=== PATIENT | female | born 1955 | race Caucasian/White ===

== ENCOUNTER → 2017-10-24 12:19 | Outpatient (CLI) | payer OTHER, SELFPAY ==
--- NOTE | 2017-10-24 12:22 | HPBD_ITS ---
STUDY: DUAL ENERGY X-RAY ABSORPTIOMETRY / DXA REASON FOR EXAM: Female, 62 years old. The patient is postmenopausal. No loss of height. TECHNIQUE: Bone Mineral Density (BMD) measurements of lumbar spine and bilateral hips were obtained. COMPARISON: Comparison is made with prior study dated February 12, 2012. FINDINGS: Lumbar Spine (L1-L4): g/cm2 (1.307) / T-score (1.2) / Z-score (2.7) Findings are suggestive of normal bone density with a low fracture risk. Left Femur Total: g/cm2 (1.027) / T-score (0.2) / Z-score (1.3) Left Femoral Neck: g/cm2 (0.930) / T-score (-0.8) / Z-score (0.7) Right Femur Total: g/cm2 (0.968) / T-score (-0.3) / Z-score (0.8) Right Femoral Neck: g/cm2 (0.919) / T-score (-0.9) / Z-score (0.6) The T-Scores on the most recent prior examination were: Lumbar Spine (L1-L4): There has been worsening of bone density since the previous examination. Left Femur Total: which represents a worsening of 4.7%. Right Femur Total: which represents a worsening of 6.5%. HPBD/Dexa Bone Density Study (HP) IMPRESSION: The patient is considered normal as outlined below according to World [place] Organization (WHO) criteria with a low fracture risk. There has been worsening of bone density since the previous examination. Reference Information: The T-score is the number of standard deviations above or below the standard which is normal for young adults at their peak bone mineral density. The World Health Organization (WHO) interprets the T-scores as follows: Above -1 Normal bone density Between -1 and -2.5 Osteopenia Equal to / or below -2.5 Osteoporosis As a practical clinical guideline, osteopenia may be graded as follows: Mild -1 through -1.5 Moderate -1.6 through -2.0 Severe -2.1 through -2.4 The Z-score is the number of standard deviations above or below age-matched controls. A Z-score of less than -1.5 would be considered abnormal. References: 1. NIH Osteoporosis and Related Bone Diseases http://www.osteo.org 2. International Society for Clinical Densitometry http://www.iscd.org 3. National Osteoporosis Foundation http://www.nof.org Electronically Signed: Brain Ricketts MD at 14:37 EST Tel [phone], Service support ,
--- NOTE | 2017-10-24 12:22 | US_ITS ---
STUDY: ULTRASOUND BREAST - LEFT REASON FOR EXAM: Female, 62 years old. Palpable lump left breast. TECHNIQUE: Axial and longitudinal images of the LEFT breast were performed with a high resolution ultrasound transducer. COMPARISON: Comparison is made with prior mammogram done earlier in the day. FINDINGS: LEFT Breast: The palpable abnormality corresponds to a 4 mm x 6 mm x 3 mm lymph node in the axillary region of the breast. US/Breast Limited Unilateral IMPRESSION: The abnormality in the axillary region of the breast corresponds to a 6 mm x 4 mm x 3 mm lymph node. ASSESSMENT CATEGORY: BIRADS Category 2: Benign. A letter regarding these results will be sent to the patient by the facility within 30 days. Electronically Signed: Brain Ricketts MD at 15:02 EST Tel [phone], Service support ,
--- NOTE | 2017-10-24 12:22 | HPBI_ITS ---
MAMMOGRAPHY - BILATERAL DIAGNOSTIC REASON FOR EXAM: Female, 62 years old. One-year history of the left breast lump. PERTINENT HISTORY: Mother with breast cancer. Grandmother with breast cancer. TECHNIQUE: Digital bilateral breast aram (3D mammographic acquisition) in the CC and MLO projections. 2-D mediolateral oblique (MLO) and craniocaudad (CC) views of both breasts were obtained. CAD: Full Field Digital Mammography with Computer Added Detection was performed. COMPARISON: Comparison is made with prior outside examination dated October 11, 2016. FINDINGS: Breast Composition: The breasts are extremely dense, which lowers the sensitivity of mammography. There are no dominant masses or suspicious calcifications. No other significant abnormalities are identified. There has been no significant change since the prior study. HPBI/DIAG MAMM W/CAD, BILAT IMPRESSION: Stable bilateral diagnostic mammogram. With the patient's history of a palpable abnormality in the upper outer aspect of the left breast, correlation with ultrasound is recommended. ASSESSMENT CATEGORY: BIRADS Category 0: Incomplete. Need additional imaging evaluation. A letter regarding these results will be sent to the patient by the facility within 30 days. Approximately 10% of breast cancers are not detected by mammography. A normal mammogram should not delay biopsy of a clinically suspicious abnormality. Electronically Signed: Brain Ricketts MD at 14:30 EST Tel [phone], Service support ,
== END ==
PROVIDERS: Family Provider Internal Medicine; PCP Internal Medicine; Visit Provider Internal Medicine
DX: N63.0 Unspecified lump in unspecified breast (principal); Z12.31 Encounter for screening mammogram for malignant neoplasm of breast; Z78.0 Asymptomatic menopausal state
CPT/HCPCS: 76642; 77062; 77066; 77080; G0279

== ENCOUNTER 2017-11-20 06:33 | Day surgery (SDC) | payer OTHER, SELFPAY ==
[2017-11-20 07:01] VITALS: BP 105/65; PULSE 61; RESP 16; TEMP 36.6; O2SAT 97; BMI 20.6
--- NOTE | 2017-11-20 08:07 | PCM.HP.STD ---
Problem List (1) Encounter for screening for malignant neoplasm of colon Status: Acute History of Present Illness Date of Admission: 11/20/17 The patient is a 62 year old F who presents for screening colonoscopy. Past Medical History Allergies No Known Allergies Allergy (Verified 11/18/17 09:58) Home Medications: Ambulatory Orders Medication Instructions Recorded Budesonide/Formoterol 80-4.5 2 puff INHALATION DAILY 11/18/17 [Symbicort 80-4.5 Mcg Inhaler] Levothyroxine Sodium [Levoxyl] 75 mcg PO DAILY 11/18/17 Montelukast [Singulair] 10 mg PO QHS 11/18/17 Smoking Status: Former smoker Review of Systems Cardiovascular: Denies: Chest Pain, Chest Pressure, Chest Tightness, Palpitations Gastrointestinal: Denies: Abdominal Pain, Constipation, Diarrhea, Hematemesis, Nausea, Melena, Vomiting VTE Information - Inpt Only VTE Present on Admission: No VTE Mechan Device Prophylaxis: None VTE Pharm Prophylaxis ordered?: No Reason prophylaxis not ordered:: Treatment Not Indicated Patient Problems: Active and Suspected Problems Encounter for screening for malignant neoplasm of colon (Acute) - Physical Exam Neck: Supple, No JVD Lungs: Clear to auscultation Cardiovascular: Regular rate, Regular Rhythm, No murmurs Abdomen: Bowel Sounds Present, Soft, Non Tender, Non-Distended Vital Signs Temp Pulse Resp BP Pulse Ox 97.8 F 61 16 105/65 97 11/20/17 07:01 11/20/17 07:01 11/20/17 07:01 11/20/17 07:01 11/20/17 07:01 Oxygen Delivery Method Room Air Weight: 116 lb 6.465 oz Body Mass Index (BMI) 20.6 Assessment/Plan Active and Suspected Problems Encounter for screening for malignant neoplasm of colon (Acute) My plan is to perform a colonoscopy on the patient.
--- NOTE | 2017-11-20 08:09 | PCM.OPRPT ---
Problem List (1) Encounter for screening for malignant neoplasm of colon Status: Acute Report of Operation Date of Procedure: 11/20/17 Pre-Operative Diagnosis: Z12.11 screening colonoscopy Post-Operative Diagnosis: Same Surgery/Procedure Performed:: [id number] colonoscopy Type of Anesthesia:: MAC Anesthesiologist: Flakito Wright Description of Procedure: Patient was brought into the endoscopy suite placed in the left lateral decubitus position. She was given graded anesthesia. Scope was inserted into the rectum and directed through the sigmoid colon, descending colon, transverse colon, ascending colon, to the cecum. Operative findings: 1. Cecum: Normal appearance no mass lesions normal ileocecal valve. 2. Ascending colon: Normal appearance no mass lesions. 3. Transverse colon: Normal appearance no mass lesions. 4. Descending colon: Normal appearance no mass lesions. 5. Sigmoid colon: Normal appearance no mass lesions. 6. Rectum: Normal appearance no mass lesions retroflexion did reveal a few internal hemorrhoids which were not actively bleeding. The scope was withdrawn digital rectal exam was performed showing no masses within her anus. The mucosa of the colon was entirely normal there was no abnormalities identified there was no diverticular disease identified. Patient will need another colonoscopy in 10 years - Admit VTE Documentation VTE Present on Admission: No VTE Mechan Device Prophylaxis: None VTE Pharm Prophylaxis ordered?: No Reason prophylaxis not ordered:: Treatment Not Indicated
[2017-11-20 08:12] VITALS: BP 105/65; BP 94/64; PULSE 67; RESP 18; TEMP 36.2; O2SAT 100
[2017-11-20 08:15] VITALS: BP 105/65; BP 99/69; PULSE 64; RESP 17; O2SAT 99
[2017-11-20 08:20] VITALS: BP 105/65; BP 99/69; PULSE 61; RESP 16; O2SAT 99
[2017-11-20 08:25] VITALS: BP 105/65; BP 113/68; PULSE 55; RESP 16; TEMP 36.3; O2SAT 100
[2017-11-20 09:09] VITALS: BP 105/65
== END 2017-11-20 09:10 | disposition home or self-care (01) ==
LOC: EN 06:35 → AC 06:36
PROVIDERS: Family Provider Internal Medicine; PCP Internal Medicine; Visit Provider Surgery
PROC: 0DJD8ZZ Inspection of Lower Intestinal Tract, Via Natural or Artificial Opening Endoscopic (ICD-10-PCS; CPT 45378; principal; 2017-11-20 07:25)
DX: Z12.11 Encounter for screening for malignant neoplasm of colon (principal); K64.8 Other hemorrhoids; I49.3 Ventricular premature depolarization; J45.909 Unspecified asthma, uncomplicated; R51 Headache; E06.9 Thyroiditis, unspecified; Z85.828 Personal history of other malignant neoplasm of skin; Z78.0 Asymptomatic menopausal state; Z87.891 Personal history of nicotine dependence; Z79.899 Other long term (current) drug therapy
CPT/HCPCS: 45378; J7120

== ENCOUNTER → 2018-06-11 09:32 | Outpatient (CLI) | payer MEDICARE, OTHER, SELFPAY ==
--- NOTE | 2018-06-11 09:40 | MRI_ITS ---
STUDY: MRI LEFT ANKLE WITHOUT CONTRAST REASON FOR EXAM: Female, 63 years old. Achilles tendon pain as well as palpable abnormality. TECHNIQUE: Standardized fat and water weighted pulse sequences were obtained in all 3 orthogonal planes. COMPARISON: Prior comparable comparison studies are not available for review at this time. FINDINGS: Normal subcutis adipose space. Normal posterior tibialis tendon. Normal flexor digitorum longus tendon. Normal flexor hallucis longus tendon. Normal peroneus longus and brevis tendons. Normal tibialis anterior tendon. Normal extensor hallucis longus tendon. Normal extensor digitorum longus tendons. There is tendinosis of the Achilles tendon with diffuse tendon thickening, but without a partial, intratendinous, or full-thickness tear. Normal plantar fascia. Normal plantar calcaneal tubercles. Normal intrinsic muscles of the rearfoot. Normal distal tibiofibular syndesmotic ligamentous complex. There is a attenuation of the anterior talofibular ligament which appears to be discontiguous. The posterior talofibular ligament appears to be intact. Normal subtalar ligaments and sinus tarsi. Normal deltoid ligamentous complexes. Normal plantar calcaneonavicular (spring) ligament. Normal tibiotalar articulation. Normal talar dome. Normal subtalar articulations. Normal talonavicular articulation. Normal calcaneocuboid articulation. Normal navicular-cuneiform articulations. MRI/Lower Ext Joint Only (Routine) IMPRESSION: 1. MR findings suggest Achilles tendinopathy with thickening of the tendon probably explaining the palpable abnormality. 2. Sequela of at least partial if not complete tear of the anterior talofibular ligament. Electronically Signed: Michelle Marc MD at 4:54 EDT , Service support ,
== END ==
PROVIDERS: Family Provider Internal Medicine; PCP Internal Medicine; Referring Provider Podiatrist; Visit Provider Podiatrist
DX: M76.62 Achilles tendinitis, left leg (principal); M25.572 Pain in left ankle and joints of left foot
CPT/HCPCS: 73721

== ENCOUNTER → 2018-10-21 08:31 | Outpatient (CLI) | payer MEDICARE, OTHER, SELFPAY ==
--- NOTE | 2018-10-21 08:37 | CT_ITS ---
STUDY: CT ABDOMEN AND PELVIS WITH CONTRAST REASON FOR EXAM: Female, 63 years old. Markell colored Stool x1-2 years RADIATION DOSAGE (If Supplied By Facility): CTDIvol = ( 15.21 ) mGy, DLP = ( 327.36 ) mGycm TECHNIQUE: Transaxial 3.75 mm images were obtained from the dome of the diaphragm to the symphysis pubis with oral contrast. 100 ml of Isovue 300 contrast was administered. Sagittal and coronal images were reconstructed. Individualized dose optimization techniques were used for this CT. COMPARISON: None. FINDINGS: The visualized lung bases are unremarkable. The visualized portions of the heart are within normal limits. Normal liver. Normal gallbladder and extrahepatic biliary system. Normal spleen. Normal pancreas. Normal bilateral adrenal glands. Normal right kidney. Normal left kidney. Normal visualized stomach. Normal small intestine. There is moderate amount of fecal material. There is otherwise normal colon. The appendix is visualized and appears normal. Normal abdominal aorta. Normal inferior vena cava. Normal retroperitoneum. Normal urinary bladder. The uterus is age appropriate. Normal abdominal wall. There are diffuse degenerative changes of the visualized lumbar spine. CT/Abdomen/Pelvis WITH Contrast IMPRESSION: There is no acute abdomen and pelvic pathology. There is moderate amount of fecal material. There is no obstruction. Electronically Signed: Charlene Anderson MD at 6:08 EST , Service support ,
== END ==
PROVIDERS: Family Provider Internal Medicine; PCP Internal Medicine; Referring Provider Internal Medicine; Visit Provider Internal Medicine
DX: R19.5 Other fecal abnormalities (principal)
CPT/HCPCS: 74177; Q9967

== ENCOUNTER → 2018-11-19 15:17 | Outpatient (CLI) | payer MEDICARE, OTHER, SELFPAY ==
--- NOTE | 2018-11-19 15:19 | BI_ITS ---
MAMMOGRAPHY - BILATERAL SCREENING REASON FOR EXAM: Female, 63 years old. Routine annual screening examination. PERTINENT HISTORY: Mother with breast cancer. Grandmother with breast cancer. TECHNIQUE: Digital bilateral breast aram (3D mammographic acquisition) in the CC and MLO projections. 2-D mediolateral oblique (MLO) and craniocaudad (CC) views of both breasts were obtained. CAD: Full Field Digital Mammography with Computer Added Detection was performed. COMPARISON: Comparison is made with prior examination dated October 24, 2017 and prior outside mammogram dated October 11, 2016. FINDINGS: Breast Composition: The breasts are extremely dense, which lowers the sensitivity of mammography. There are no dominant masses or suspicious calcifications. No other significant abnormalities are identified. There has been no significant change since the prior study. BI/SCREENING MAMM (CAD), BILAT IMPRESSION: Stable bilateral screening mammogram. Yearly follow-up mammogram recommended. (A) ASSESSMENT CATEGORY: BIRADS Category 1: Negative. A letter regarding these results will be sent to the patient by the facility within 30 days. Approximately 10% of breast cancers are not detected by mammography. A normal mammogram should not delay biopsy of a clinically suspicious abnormality. [id number] Electronically Signed: Brain Ricketts, at 9:24 EST , Service support ,
== END ==
PROVIDERS: Family Provider Internal Medicine; PCP Internal Medicine; Referring Provider Internal Medicine; Visit Provider Internal Medicine
DX: Z12.31 Encounter for screening mammogram for malignant neoplasm of breast (principal); R19.5 Other fecal abnormalities
CPT/HCPCS: 77063; 77067

== ENCOUNTER → 2018-12-05 13:47 | Outpatient (CLI) | payer SELFPAY ==
--- NOTE | 2018-12-05 13:57 | CT_ITS ---
STUDY: CT CHEST WITHOUT CONTRAST REASON FOR EXAM: Female, 63 years old. Calcium scoring examination. Radiological over read examination. RADIATION DOSAGE (If Supplied By Facility): CTDIvol = ( 12.19 ) mGy, DLP = ( 219.42 ) mGycm TECHNIQUE: Transaxial imaging was performed without the administration of intravenous contrast material. Individualized dose optimization techniques were used for this CT. COMPARISON: None. FINDINGS: Minimal increased markings along the posterior medial segment of the left lower lobe suggestive of a mild degree of left basilar atelectasis. There is no demonstrated pleural abnormality. There are calcifications of the coronary arteries. There are multiple small lymph nodes within the mediastinum, which are normal in size and morphology most compatible with reactive lymph hyperplasia. Normal hilar regions. Normal unenhanced pulmonary arteries. Normal aorta arch and descending thoracic aorta. Normal osseous structures. There is no demonstrated abnormality of the visualized upper abdomen. CT/Limited Chest CT w/CCTA IMPRESSION: Coronary artery calcification. Mild increased markings at the left lung base suggestive of atelectasis. Electronically Signed: Brain Ricketts, at 10:33 EDT , Service support ,
[2018-12-05 14:06] VITALS: BP 125/78; PULSE 59; RESP 16; O2SAT 96; BMI 20.7
--- NOTE | 2018-12-05 16:43 | CA.SCORE ---
Calcium Scoring Date of Study:: 12/05/18 Coronary Calcium Scoring: Coronary calcium scoring. High-resolution computed tomographic imaging of the chest were performed on 12/05/2018 with particular attention paid to the coronary arteries. Images from the examination were analyzed for the presence and extent of coronary artery calcification using the coronary calcification cortication software. The patient tolerated the procedure well and there were no complications. The results of the coronary calcification analysis are provided below: Coronary artery Left main score 0 Left anterior descending artery 50.9 Left circumflex artery score 0 Right coronary artery score 0 Total Agatston score 50.9. The above suggest the percentile ranking between 50 and 75% in comparison with scores for people in a group with similar gender and age. A full evaluation of the cardiac risk should include an assessment of all conventional risk factors and the scores and percentile ranking is reported hearing should be evaluated in this context. The above score is suggestive of mild plaque burden or likely minimal or mild coronary atherosclerosis.
== END ==
PROVIDERS: Family Provider Internal Medicine; PCP Internal Medicine; Referring Provider Internal Medicine; Visit Provider Internal Medicine
DX: E78.5 Hyperlipidemia, unspecified (principal)
CPT/HCPCS: 75571; 76380

== ENCOUNTER → 2019-10-28 13:59 | Outpatient (CLI) | payer MEDICARE, OTHER, SELFPAY ==
[2018-12-05 14:06] VITALS: BMI 20.7
--- NOTE | 2019-10-28 14:08 | RAD_ITS ---
STUDY: X-RAY CHEST REASON FOR EXAM: Female, 64 years old. SOB ON EXERTION TECHNIQUE: 2 views COMPARISON: None. FINDINGS: Mild hyperexpansion without consolidation, focal atelectasis or pleural effusion. There is no demonstrated pleural abnormality. Normal size heart. Normal mediastinum and mary jane. Normal visualized pulmonary arteries. Normal visualized aortic arch and descending thoracic aorta. Mild degenerative changes of the thoracic spine. Normal visualized ribs, clavicles, and shoulders. There is no demonstrated abnormality of the visualized soft tissue structures of the upper abdomen. RAD/Chest PA and Lateral IMPRESSION: Mild hyperexpansion without other acute cardiopulmonary findings. Negative for consolidation, atelectasis, pleural effusion or cardiomegaly. Electronically Signed: Alejandra Vazquez MD at 22:30 EST , Service support ,
== END ==
PROVIDERS: PCP Internal Medicine; Referring Provider Internal Medicine; Visit Provider Internal Medicine
DX: R06.02 Shortness of breath (principal)
CPT/HCPCS: 71046

== ENCOUNTER → 2019-12-07 15:47 | Outpatient (CLI) | payer MEDICARE, OTHER, SELFPAY ==
[2018-12-05 14:06] VITALS: BMI 20.7
--- NOTE | 2019-12-07 15:51 | RAD_ITS ---
STUDY: X-RAY - LUMBAR SPINE REASON FOR EXAM: Female, 64 years old. LBP X ONE WEEK TECHNIQUE: 5 view(s) of the lumbar spine were obtained. COMPARISON: None FINDINGS: Normal lumbar lordosis. Mild scoliosis, convexity to the right. There is a normal alignment of the vertebrae. There is multilevel endplate spondylosis of the lumbar vertebrae. There is multi-level degenerative disc disease with multi-level disc space narrowing. There is no demonstrated fracture. There is no demonstrated spondylolysis of the pars interarticulares. Advanced multilevel bilateral facet hypertrophic changes. The soft tissue structures are unremarkable. RAD/L/S Spine Min 4 Views IMPRESSION: Advanced spondylosis/degenerative disease with no acute fracture, spondylolisthesis or pars defect. Electronically Signed: Tracey Jordan MD at 0:14 EDT , Service support ,
== END ==
PROVIDERS: PCP Internal Medicine; Referring Provider Internal Medicine; Visit Provider Internal Medicine
DX: M54.5 Low back pain (principal)
CPT/HCPCS: 72110

== ENCOUNTER → 2020-02-19 11:06 | Outpatient (CLI) | payer MEDICARE, OTHER, SELFPAY ==
[2018-12-05 14:06] VITALS: BMI 20.7
--- NOTE | 2020-02-19 11:12 | MRI_ITS ---
STUDY: MRI LUMBAR SPINE WITHOUT CONTRAST REASON FOR EXAM: Female, 64 years old. INTERMITTENT LOW BACK PAIN X 5 MONS, NERVE ISSUE TECHNIQUE: Standardized fat and water weighted pulse sequences were obtained in the sagittal and axial planes. COMPARISON: Lumbar spine x-ray dated December 07, 2019 FINDINGS: No demonstrated compression deformity or fracture or marrow edema. No aggressive process seen. Disc desiccation is present at all levels. Normal lumbar lordosis. Mild dextroscoliosis is present. Normal conus medullaris that terminates at the T12 level. L1-2: Mild retrolisthesis of L1 on L2 up to 2 mm demonstrated. The disc space is mildly to moderately narrowed with a diffuse disc osteophyte complex. Normal bilateral facet joints. Normal central canal and bilateral lateral recesses. Normal bilateral intervertebral neural foramina. L2-3: Mild retrolisthesis of L2 on L3 up to 2 mm demonstrated. The disc space is moderately narrowed with a diffuse disc osteophyte complex. Normal bilateral facet joints. Normal central canal and bilateral lateral recesses. Normal bilateral intervertebral neural foramina. Moderate degenerative endplate signal noted. L3-4: Mild retrolisthesis of L3 on L4 up to 2 mm demonstrated. The disc space is mildly to moderately narrowed with a diffuse disc osteophyte complex. Normal bilateral facet joints. Normal central canal and bilateral lateral recesses. Mild bilateral foraminal stenosis is present without nerve root compression. L4-5: Normal endplates. Minimal posterior disc space narrowing is present without significant bulging or herniation of the disc. The facet joints are mildly hypertrophied. Normal central canal and bilateral lateral recesses. Normal bilateral intervertebral neural foramina. 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 Normal endplates. Mild disc space narrowing is present without bulging or herniation. Minimal anterolisthesis of L5 on S1 of no more and a 2 mm demonstrated. Moderate hypertrophy of the right facet joint noted. Mild degeneration of both facet joints is present. Normal central canal and bilateral lateral recesses. Normal bilateral intervertebral neural foramina. Normal visualized sacral ala. There is mild paraspinal muscular atrophy. MRI/Spine Lumbar (Routine) IMPRESSION: 1. Mild multilevel degenerative changes, as described above. 2. No central canal stenosis or critical foraminal stenosis or nerve root compression demonstrated. Electronically Signed: Jose Manuel Nuñez MD at 13:33 EDT , Service support ,
== END ==
PROVIDERS: PCP Internal Medicine; Visit Provider Internal Medicine
DX: M54.5 Low back pain (principal)
CPT/HCPCS: 72148

== ENCOUNTER → 2020-04-27 10:59 | Outpatient (CLI) | payer MEDICARE, OTHER, SELFPAY ==
[2018-12-05 14:06] VITALS: BMI 20.7
--- NOTE | 2020-04-27 11:01 | BI_ITS ---
MAMMOGRAPHY - BILATERAL SCREENING REASON FOR EXAM: Female, 65 years old. Routine annual screening examination. PERTINENT HISTORY: Mother with breast cancer. Grandmother with breast cancer. TECHNIQUE: Digital bilateral breast roselyn (3D mammographic acquisition) in the CC and MLO projections. 2-D mediolateral oblique (MLO) and craniocaudad (CC) views of both breasts were obtained. CAD: Full Field Digital Mammography with Computer Added Detection was performed. COMPARISON: Comparison is made with prior examination of 11/19/2018 and 10/24/2017. FINDINGS: Breast Composition: The breasts are extremely dense, which lowers the sensitivity of mammography. There are no dominant masses or suspicious calcifications. No other significant abnormalities are identified. There has been no significant change since the prior study. BI/SCREEN MAMM (CAD) W/ROSELYN BILAT IMPRESSION: Stable bilateral screening mammogram. Yearly follow-up mammogram recommended. (A) ASSESSMENT CATEGORY: BIRADS Category 1: Negative. A letter regarding these results will be sent to the patient by the facility within 30 days. Approximately 10% of breast cancers are not detected by mammography. A normal mammogram should not delay biopsy of a clinically suspicious abnormality. [id number] Electronically Signed: Brain Ricketts, at 14:23 EDT , Service support ,
--- NOTE | 2020-04-27 11:02 | BD_ITS ---
STUDY: DUAL ENERGY X-RAY ABSORPTIOMETRY / DXA REASON FOR EXAM: Female, 65 years old. GREASE MAN -- HX OF SMOKING -- USES STEROID INHALER DAILY -- TAKES THYROID MEDICATION -- DOES HIGH AMOUNT OF EXERCISE -- FAMILY HX OF OSTEO- MOTHER -- NO TRAVON TECHNIQUE: Bone Mineral Density (BMD) measurements of lumbar spine and bilateral hips were obtained. COMPARISON: 10/24/2017. FINDINGS: Lumbar Spine (L1-L4): g/cm2 (1.288) / T-score (1.0) / Z-score (2.6) Findings are suggestive of normal bone density with no abnormal increase fracture risk. Left Femur Total: g/cm2 (0.976) / T-score (-0.3) / Z-score (1.0) Left Femoral Neck: g/cm2 (0.913) / T-score (-0.9) / Z-score (0.6) Right Femur Total: g/cm2 (0.940) / T-score (-0.5) / Z-score (0.8) Right Femoral Neck: g/cm2 (0.904) / T-score (-1.0) / Z-score (0.6) The T-Scores on the most recent prior examination were: Lumbar Spine (L1-L4): There has been -1.3% change of bone density since the previous examination. Left Femur Total: -5% change of bone density since the previous examination. . Right Femur Total: -2.9% change of bone density since the previous examination. . BD/Dexa Bone Density Study IMPRESSION: The patient is considered normal bone density in the lumbar spine and both hips as outlined below according to World [place] Organization (WHO) criteria with no abnormal increase fracture risk. There has been -1.3% change of bone density in the lumbar spine, -5% change of bone density in the left hip and -2.9% change of bone density in the right hip since the previous examination. Reference Information: The T-score is the number of standard deviations above or below the standard which is normal for young adults at their peak bone mineral density. The World Health Organization (WHO) interprets the T-scores as follows: Above -1 Normal bone density Between -1 and -2.5 Osteopenia Equal to / or below -2.5 Osteoporosis As a practical clinical guideline, osteopenia may be graded as follows: Mild -1 through -1.5 Moderate -1.6 through -2.0 Severe -2.1 through -2.4 The Z-score is the number of standard deviations above or below age-matched controls. A Z-score of less than -1.5 would be considered abnormal. References: 1. NIH Osteoporosis and Related Bone Diseases http://www.osteo.org 2. International Society for Clinical Densitometry http://www.iscd.org 3. National Osteoporosis Foundation http://www.nof.org Electronically Signed: Anil Diallo MD at 14:30 EDT , Service support ,
== END ==
PROVIDERS: PCP Internal Medicine; Referring Provider Internal Medicine; Visit Provider Internal Medicine
DX: Z78.0 Asymptomatic menopausal state (principal); Z12.31 Encounter for screening mammogram for malignant neoplasm of breast
CPT/HCPCS: 77063; 77067; 77080

== ENCOUNTER → 2020-09-28 14:13 | Outpatient (CLI) | payer MEDICARE, OTHER, SELFPAY ==
[2018-12-05 14:06] VITALS: BMI 20.7
--- NOTE | 2020-09-28 14:30 | CT_ITS ---
STUDY: CT BRAIN WITH AND WITHOUT CONTRAST REASON FOR EXAM: Female, 65 years old. HEADACHES ON RIGHT SIDE X 6 WEEKS. RADIATION DOSAGE (If Supplied By Facility): CTDIvol = ( 44.99 ) mGy, DLP = ( 1479.73 ) mGycm TECHNIQUE: Transaxial CT imaging of the brain was performed pre and post contrast administration. The examination was performed with intravenous administration of IV-50 ML ISOVUE 370. Individualized dose optimization techniques were used for this CT. COMPARISON: None. FINDINGS: Normal soft tissue structures. Normal calvarium. Normal size ventricles and extra-axial spaces for the patient''s age. Normal white matter tracts of the cerebral hemispheres. Normal basal ganglia and thalami. Normal brainstem. Normal cerebellum. There is no intracranial hemorrhage. There are no findings of an acute ischemic infarction. Normal visualized paranasal sinuses. CT/Brain/Head W/WO Contrast IMPRESSION: Normal unenhanced and enhanced CT scan of the brain. Electronically Signed: Brain Ricketts, at 15:05 EST , Service support ,
[2020-09-28 14:31] LABS: CREATININE FINGERSTICK 0.9 mg/dL (0.55-1.02)
== END ==
PROVIDERS: PCP Internal Medicine; Referring Provider Internal Medicine; Visit Provider Internal Medicine
DX: R51.9 Headache, unspecified (principal)
CPT/HCPCS: 70470; Q9967

== ENCOUNTER 2020-10-12 09:30 | Outpatient (RCR) | payer MEDICARE, OTHER, SELFPAY ==
[2018-12-05 14:06] VITALS: BMI 20.7
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
--- NOTE | 2020-10-12 09:53 | HP.PTDCSUM ---
It has been my pleasure to treat ABBY ABDALLA referred by Dr. Kaelyn Marquez DO, with the diagnosis of Lumbar radiculopathy for a total of 4 visit(s). Discharge Date: 10/12/20 Please see the following information for a summary of their discharge status. Subjective: Doing OK. Adding the upper body is really helpful. [place] really good. Has had two massages and feels good. Minimal pain over last 3 weeks. Gets achiness R LB. Wakes her up at times but it is minimal. Advil helps. Activities pretty normal. R lB Pain Intensity (Out of 10): 0 % Improvement: 90 Objective/Function: Full L/S AROM without pain. Pt progressing nicely toward goals. Goal 1:: Sleep without waking due to pain Goal Progress: Progressing Goal 2:: R LE feel 75% better adn no t limiting Goal Progress: Goal Met Goal 3:: I appropr HEP for core strength, hip stretch to minimize future problems. Goal Progress: Goal Met Goal 4:: Oswestry score 4 or less. Goal Progress: Goal Met Plan: d/c If there are questions or concerns regarding this patient's physical therapy, please feel free to call me at [phone]. Thank you for the referral of this patient. Sincerely, Duncan Bhagat, DPT, OCS, CSCS
== END 2020-10-12 19:00 | disposition home or self-care (01) ==
LOC: PT 09:30
PROVIDERS: PCP Internal Medicine; Referring Provider Internal Medicine; Visit Provider Internal Medicine
DX: M54.16 Radiculopathy, lumbar region (principal)
CPT/HCPCS: 97110; 97162; 97164

== ENCOUNTER → 2021-05-05 08:22 | Outpatient (CLI) | payer MEDICARE, OTHER, SELFPAY ==
[2018-12-05 14:06] VITALS: BMI 20.7
--- NOTE | 2021-05-05 08:23 | BI_ITS ---
MAMMOGRAPHY - BILATERAL SCREENING REASON FOR EXAM: Female, 66 years old. Routine annual screening examination. PERTINENT HISTORY: Mother with breast cancer. Grandmother with breast cancer. TECHNIQUE: Digital bilateral breast roselyn (3D mammographic acquisition) in the CC and MLO projections. 2-D mediolateral oblique (MLO) and craniocaudad (CC) views of both breasts were obtained. CAD: Full Field Digital Mammography with Computer Added Detection was performed. COMPARISON: Comparison is made with prior study 04/27/2020 and 11/19/2018. FINDINGS: Breast Composition: The breasts are extremely dense, which lowers the sensitivity of mammography. There are no dominant masses or suspicious calcifications. No other significant abnormalities are identified. There has been no significant change since the prior study. BI/SCRN MAMM (CAD)W/ROSELYN BILAT IMPRESSION: Stable bilateral screening mammogram. Yearly follow-up mammogram recommended. (A) ASSESSMENT CATEGORY: BIRADS Category 1: Negative. A letter regarding these results will be sent to the patient by the facility within 30 days. Approximately 10% of breast cancers are not detected by mammography. A normal mammogram should not delay biopsy of a clinically suspicious abnormality. [id number] Electronically Signed: Brain Ricketts MD at 9:01 EDT , Service support ,
== END ==
PROVIDERS: PCP Internal Medicine; Referring Provider Internal Medicine; Visit Provider Internal Medicine
DX: Z12.31 Encounter for screening mammogram for malignant neoplasm of breast (principal)
CPT/HCPCS: 77063; 77067

== ENCOUNTER → 2022-05-31 | Outpatient (CLI) | payer MEDICARE, OTHER, SELFPAY ==
--- NOTE | 2022-05-31 09:37 | BI_ITS ---
MAMMOGRAPHY - BILATERAL SCREENING REASON FOR EXAM: Female, 67 years old. Routine annual screening examination. PERTINENT HISTORY: Mother with breast cancer. Grandmother with breast cancer. TECHNIQUE: Digital bilateral breast roselyn (3D mammographic acquisition) in the CC and MLO projections. 2-D mediolateral oblique (MLO) and craniocaudad (CC) views of both breasts were obtained. CAD: Full Field Digital Mammography with Computer Added Detection was performed. COMPARISON: Comparison is made with prior study 05/05/2021 and 04/27/2020. FINDINGS: Breast Composition: The breasts are extremely dense, which lowers the sensitivity of mammography. There are no dominant masses or suspicious calcifications. No other significant abnormalities are identified. There has been no significant change since the prior study. BI/SCRN MAMM (CAD)W/ROSELYN BILAT IMPRESSION: Stable bilateral screening mammogram. Yearly follow-up mammogram recommended. (A) ASSESSMENT CATEGORY: BIRADS Category 1: Negative. A letter regarding these results will be sent to the patient by the facility within 30 days. Approximately 10% of breast cancers are not detected by mammography. A normal mammogram should not delay biopsy of a clinically suspicious abnormality. [id number] Electronically Signed: Brain Ricketts MD at 10:37 EDT ,
--- NOTE | 2022-05-31 09:39 | BD_ITS ---
STUDY: DUAL ENERGY X-RAY ABSORPTIOMETRY / DXA REASON FOR EXAM: Female, 67 years old. Z780. Patient is postmenopausal. TECHNIQUE: Bone Mineral Density (BMD) measurements of lumbar spine and bilateral hips were obtained. COMPARISON: Comparison is made with prior study 04/27/2020. FINDINGS: Lumbar Spine (L1-L4): g/cm2 (1.084) / T-score (0.4) / Z-score (2.5) Findings are suggestive of normal bone density with a low fracture risk. Left Femur Total: g/cm2 (0.909) / T-score (-0.3) / Z-score (1.2) Left Femoral Neck: g/cm2 (0.684) / T-score (-1.5) / Z-score (0.3) Right Femur Total: g/cm2 (0.859) / T-score (-0.7) / Z-score (0.8) Right Femoral Neck: g/cm2 (0.684) / T-score (-1.5) / Z-score (-0.3) The T-Scores on the most recent prior examination were: Lumbar Spine (L1-L4): There has been worsening of bone density since the previous examination. Left Femur Total: which represents a worsening of 0.2%. Right Femur Total: which represents a worsening of 1.9%. BD/Dexa Bone Density Study IMPRESSION: The patient is considered osteopenic as outlined below according to World [place] Organization (WHO) criteria with a low fracture risk. There has been worsening of bone density since the previous examination. Reference Information: The T-score is the number of standard deviations above or below the standard which is normal for young adults at their peak bone mineral density. The World Health Organization (WHO) interprets the T-scores as follows: Above -1 Normal bone density Between -1 and -2.5 Osteopenia Equal to / or below -2.5 Osteoporosis As a practical clinical guideline, osteopenia may be graded as follows: Mild -1 through -1.5 Moderate -1.6 through -2.0 Severe -2.1 through -2.4 The Z-score is the number of standard deviations above or below age-matched controls. A Z-score of less than -1.5 would be considered abnormal. References: 1. NIH Osteoporosis and Related Bone Diseases www osteo.org 2. International Society for Clinical Densitometry www iscd.org 3. National Osteoporosis Foundation www nof.org Electronically Signed: Brain Ricketts MD at 15:36 EDT ,
== END | disposition home or self-care (01) ==
LOC: OPBD 09:33
PROVIDERS: PCP Internal Medicine; Referring Provider Internal Medicine; Visit Provider Internal Medicine
DX: Z12.31 Encounter for screening mammogram for malignant neoplasm of breast (principal); Z78.0 Asymptomatic menopausal state
CPT/HCPCS: 77063; 77067; 77080

== ENCOUNTER → 2022-10-01 | Outpatient (CLI) | payer MEDICARE, OTHER, SELFPAY ==
--- NOTE | 2022-10-01 11:01 | VDLE_ITS ---
Reason For Study: SWELLING RIGHT LEFT CFV is compressible, spontaneous, phasic, GSV is normal. competent and demonstrates normal CFV is compressible, spontaneous, phasic, augmentation. competent, and demonstrates normal Procedure augmentation. This is a venous duplex using B-mode, color FV is compressible, spontaneous, phasic, flow and spectral Doppler. competent and demonstrates normal The exam was diagnostic. augmentation. A preliminary report was called and/or faxed POP V is compressible, spontaneous, phasic, to Dr. Marquez @ [phone] @ 11:30 am. competent and demonstrates normal augmentation. T/P Trunk is compressible. PTV is compressible. LT PerV is compressible. VL/Venous Duplex US, Unilateral Interpretation Summary Deep veins of the left lower extremity are patent and compressible segmentally. There is no evidence of left lower extremity deep vein thrombosis. The left great saphenous vein ajay ears patent and compressible segmentally. Ordering Physician: Kaelyn Marquez Referring Physician: Kaelyn Marquez Performed By: Ann-Marie Sterling, CARSON, RVT
== END | disposition home or self-care (01) ==
PROVIDERS: PCP Internal Medicine; Visit Provider Internal Medicine
DX: M79.89 Other specified soft tissue disorders (principal)
CPT/HCPCS: 93971

== ENCOUNTER → 2023-06-04 | Outpatient (CLI) | payer MEDICARE, OTHER, SELFPAY ==
--- NOTE | 2023-06-04 14:09 | BI_ITS ---
MAMMOGRAPHY - BILATERAL SCREENING REASON FOR EXAM: Female, 68 years old. Routine annual screening examination. PERTINENT HISTORY: Mother with breast cancer. Grandmother with breast cancer. TECHNIQUE: Digital bilateral breast roselyn (3D mammographic acquisition) in the CC and MLO projections. 2-D mediolateral oblique (MLO) and craniocaudad (CC) views of both breasts were obtained. CAD: Full Field Digital Mammography with Computer Added Detection was performed. COMPARISON: Comparison is made with prior study dated May 31, 2022 and May 05, 2021. FINDINGS: Breast Composition: The breasts are extremely dense, which lowers the sensitivity of mammography. There are no dominant masses or suspicious calcifications. No other significant abnormalities are identified. There has been no significant change since the prior study. BI/SCRN MAMM (CAD)W/ROSELYN BILAT IMPRESSION: Stable bilateral screening mammogram. Yearly follow-up mammogram recommended. (A) ASSESSMENT CATEGORY: BIRADS Category 1: Negative. A letter regarding these results will be sent to the patient by the facility within 30 days. Approximately 10% of breast cancers are not detected by mammography. A normal mammogram should not delay biopsy of a clinically suspicious abnormality. [id number] Electronically Signed: Brain Ricketts MD at 14:53 EDT ,
== END | disposition home or self-care (01) ==
LOC: OPBI 14:08
PROVIDERS: PCP Internal Medicine; Referring Provider Internal Medicine; Visit Provider Internal Medicine
DX: Z12.31 Encounter for screening mammogram for malignant neoplasm of breast (principal); Z80.3 Family history of malignant neoplasm of breast
CPT/HCPCS: 77063; 77067

== ENCOUNTER 2023-11-11 11:30 | Outpatient (RCR) | payer MEDICARE, OTHER, SELFPAY ==
--- NOTE | 2023-10-29 10:06 | HP.PTEVAL_ITS ---
Patient's Visit Information Visit Information Visit Information: ABBY ABDALLA is a 68 year old F referred to Physical Therapy by Dr. Kaelyn Marquez DO with a diagnosis of R Tennis elbow. Date of Evaluation: 10/28/23 Physical Therapist: Venu Santillan DPT Visit Plan Frequency: 2x /Week Duration: 3 Weeks Plan: 1) grade 3 STM and IASTM to R lateral epicondyle and extensor tendon origin, post shoulder prn 2) eccentric wrist ext and pronation/supination increasing weight 3) shoulder strengthening (ABD, ER) 4) wrist/forearm stretching as needed, radial mobs 5) address pickleball paddle form (looking for shoulder compensations) HEP: self-massage to extensor tendon, stretching with OP, post shoulder stretch, lightly weighted wrist ex eccentric Subjective Subjective: Pt presents with R sided tennis elbow that has been present for 2-3 months. Pt attempted dry needling, some ex, time off from tennis/pickleball but is still having soreness. Pt plays pickleball 5x a week. Pt reports soreness thats worse in the morning, 5/10 at worst and gets down to 1 or 2/10, often feeling stiff in the elbow. Pt indicates some soreness in R deltoid/post julia ulder too. Pt has stopped tennis and is mostly playing pickleball, taking a month off to help rest. Interrupts sleep with some soreness. No real mech of injury. Denies N/T. Objective Objective: ROM: WNL for wrist and shoulder MMT: global R shoulder strength 4+/5, global elbow strength 4+/5, discomfort with wrist ex (elbow straight worse than bent), no issues with pronation or supination, safety officer strength symmetrical PALPATION: tenderness to lateral epicondyle near extensor tendon origin and along muscle belly of ECRL, tightness with stretching (felt greatest stretch with extended elbow, neutral forearm, flexed wrist with overpressure Overall pt condition chronic and not highly irritable. Discussed finding a pediatric or smaller counterforce brace to help with act and to continue taking a break from pickleball while in PT. Focus on reducing tightness and strengthening to be able to tolerate multiple matches per week with less pain. Balance/Special Test Scores Quick DASH Score: 20.4525 Goals Goal 1:: Pt will demonstrate min to no tenderness in lateral epicondylar region Goal Time Frame: 2 Weeks Goal 2:: Pt will report <2/10 pain at worst when waking up in the morning Goal Time Frame: 2 Weeks Goal 3:: Pt will demonstrate proper form when using pickleball racket (shoulder and forearm) with <2/10 pain Goal Time Frame: 2-4 Weeks Goal 4:: Pt will demonstrate 4+/5 wrist strength with <2/10 pain Goal Time Frame: 2-4 Weeks Rehabilitation Potential Physical Therapy Diagnosis: Pt presents to PT with symptoms congruent with lateral epicondylitis (tennis elbow) most likely sustained from overuse during racket sports (tennis and pickleball). Pt would benefit from PT to address inflammation, tissue extensibility, strength, and backhand racket swing form to reduce unnecessary compensations. Rehabilitation Potential: Excellent Anticipated Interventions Patient/Client Instruction: Educate patient on: Condition and Plan of Care For the Purpose of:: To decrease pain, To improve nutrient delivery to tissue, To increase oxygenation perfusion, To improve muscle performance and motor function, To improve ability to perform ADL's, To increase tolerance to activity/condition/position, To improve performance and independence with ADL's, To improve health of tissue, To decrease soft tissue restriction, To assume or resume ADL's, To reduce risk of recurrence, To foster healthy habits, To improve self management and To prevent re-injury Therapeutic Exercise to Include: Strength training, Flexibilty training and Passive ROM For the Purpose of:: To improve muscle performance and motor function, To increase tolerance to activity/condition/position, To improve performance and independence with ADL's, To improve ability of physical actions for home/community/work/leisure, To assume or resume ADL's, To reduce risk of recurrence, To improve self management, To prevent re-injury, To improve ability to perform tasks related to life management and To improve tolerance to ADL's Manual Therapy Techniques to Include: Mobilization For the Purpose of:: To decrease pain, To improve nutrient delivery to tissue, To increase oxygenation perfusion, To improve muscle performance and motor function, To improve ability to perform ADL's, To improve health of tissue, To decrease soft tissue restriction, To increase flexibility/ROM, To improve ability to perform tasks related to life management and To improve tolerance to ADL's Cryotherapy (ice pack, ice massage): Yes Thermo therapy (hot pack): Yes Ultrasound (thermal/non thermal): Yes For the Purpose of:: To decrease pain, To decrease swelling/inflammation, To increase ROM, To improve nutrient delivery to tissue, To increase oxygenation perfusion, To improve muscle performance and motor function, To improve health of tissue, To decrease soft tissue restriction, To increase flexibility/ROM, To improve self management, To prevent re-injury and To improve ability to perform tasks related to life management Text: Thank you for the opportunity to evaluate your patient. For Medicare and Medicare HMO plans, please review the plan of care and approve it. It will need to be FAXED BACK to us at [phone] for Medicare purposes. For Medicare only, by signing this I certify the plan of care. Please let me know if there are questions or concerns regarding this plan of care. Physician Signature: Date:
--- NOTE | 2023-12-26 14:13 | HP.PTDCNRP_ITS ---
Patient Information Patient Information: ABBY ABDALLA was seen in my office for initial evaluation on 10/28/23. The following Plan of Care was established for this patient: POC Established Initial Frequency: 2x /Week Initial Duration: 3 Weeks Anticipated Interventions Patient/Client Instruction: Educate patient on: Condition and Plan of Care For the Purpose of:: To decrease pain, To improve nutrient delivery to tissue, To increase oxygenation perfusion, To improve muscle performance and motor function, To improve ability to perform ADL's, To increase tolerance to act ivity/condition/position, To improve performance and independence with ADL's, To improve health of tissue, To decrease soft tissue restriction, To assume or resume ADL's, To reduce risk of recurrence, To foster healthy habits, To improve self management and To prevent re-injury Therapeutic Exercise to Include: Strength training, Flexibilty training and Passive ROM For the Purpose of:: To improve muscle performance and motor function, To increase tolerance to activity/condition/position, To improve performance and independence with ADL's, To improve ability of physical actions for home/community/work/leisure, To assume or resume ADL's, To reduce risk of recurrence, To improve self management, To prevent re-injury, To improve ability to perform tasks related to life management and To improve tolerance to ADL's Manual Therapy Techniques to Include: Mobilization For the Purpose of:: To decrease pain, To improve nutrient delivery to tissue, To increase oxygenation perfusion, To improve muscle performance and motor function, To improve ability to perform ADL's, To improve health of tissue, To decrease soft tissue restriction, To increase flexibility/ROM, To improve ability to perform tasks related to life management and To improve tolerance to ADL's Cryotherapy (ice pack, ice massage): Yes Thermo therapy (hot pack): Yes Ultrasound (thermal/non thermal): Yes For the Purpose of:: To decrease pain, To decrease swelling/inflammation, To increase ROM, To improve nutrient delivery to tissue, To increase oxygenation perfusion, To improve muscle performance and motor function, To improve health of tissue, To decrease soft tissue restriction, To increase flexibility/ROM, To improve self management, To prevent re-injury and To improve ability to perform tasks related to life management Last Seen Last Seen: This patient was last seen in our office 11/11/23. Pertinent comments regarding their Physical therapy will appear below: Pt. was seen in PT for her lateral epicondylitis. Pt. at her last visit was doing much better. She was to trial pickle ball and if she had issues she was to come back to PT. PT. has not been seen in ~6 weeks and will be DC from PT at this point in time. At this point I will be discontinuing this patient from physical therapy. I would be happy to see this patient again in the future if found appropriate by the physician. Thank you! Venu Santillan, DPT Balance/Gait/Functional tests Balance/Special Test Scores Quick DASH Score: 20.4518
== END 2023-11-11 19:00 | disposition home or self-care (01) ==
LOC: PT 11:30
PROVIDERS: PCP Internal Medicine; Referring Provider Internal Medicine; Visit Provider Internal Medicine
DX: M77.11 Lateral epicondylitis, right elbow (principal)
CPT/HCPCS: 97110; 97140; 97161

== ENCOUNTER → 2024-06-09 | Outpatient (CLI) | payer MEDICARE, OTHER, SELFPAY ==
--- NOTE | 2024-06-09 13:46 | BI_ITS ---
MAMMOGRAPHY - BILATERAL SCREENING REASON FOR EXAM: Female, 69 years old. Routine annual screening examination. PERTINENT HISTORY: Mother with breast cancer. Grandmother with breast cancer. TECHNIQUE: Digital bilateral breast roselyn (3D mammographic acquisition) in the CC and MLO projections. 2-D mediolateral oblique (MLO) and craniocaudad (CC) views of both breasts were obtained. CAD: Full Field Digital Mammography with Computer Added Detection was performed. COMPARISON: Comparison is made with prior study dated June 04, 2023 and May 31, 2022. FINDINGS: Breast Composition: The breasts are extremely dense, which lowers the sensitivity of mammography. There are no dominant masses or suspicious calcifications. No other significant abnormalities are identified. There has been no significant change since the prior study. BI/SCRN MAMM (CAD)W/ROSELYN BILAT IMPRESSION: Stable bilateral screening mammogram. Yearly follow-up mammogram recommended. (A) ASSESSMENT CATEGORY: BIRADS Category 1: Negative. A letter regarding these results will be sent to the patient by the facility within 30 days. Approximately 10% of breast cancers are not detected by mammography. A normal mammogram should not delay biopsy of a clinically suspicious abnormality. [id number] Electronically Signed: Brain Ricketts MD at 15:07 EDT ,
== END | disposition home or self-care (01) ==
LOC: OPBI 13:46
PROVIDERS: PCP Internal Medicine; Referring Provider Internal Medicine; Visit Provider Internal Medicine
DX: Z12.31 Encounter for screening mammogram for malignant neoplasm of breast (principal); Z80.3 Family history of malignant neoplasm of breast
CPT/HCPCS: 77063; 77067

== ENCOUNTER → 2024-09-22 | Outpatient (CLI) | payer MEDICARE, OTHER, SELFPAY ==
--- NOTE | 2024-09-22 12:21 | BD_ITS ---
STUDY: DUAL ENERGY X-RAY ABSORPTIOMETRY / DXA REASON FOR EXAM: Female, 69 years old. 627.8Menopausal postmenopausal BONE DENSITY REASON FOR EXAM -- DEXA - postmenopausal TECHNIQUE: Bone Mineral Density (BMD) measurements of lumbar spine and bilateral hips were obtained. COMPARISON: Comparison is made with prior study dated May 31, 2022. FINDINGS: Lumbar Spine (L1-L4): g/cm2 (1.152) / T-score (1.0) / Z-score (3.2) Findings are suggestive of normal bone density with a low fracture risk. Left Femur Total: g/cm2 (0.944) / T-score (0.0) / Z-score (1.6) Left Femoral Neck: g/cm2 (0.731) / T-score (-1.1) / Z-score (0.8) Right Femur Total: g/cm2 (0.850) / T-score (-0.8) / Z-score (0.8) Right Femoral Neck: g/cm2 (0.676) / T-score (-1.6) / Z-score (0.3) The T-Scores on the most recent prior examination were: Lumbar Spine (L1-L4): There has been improvement of bone density since the previous examination. Left Femur Total: which represents an improvement of 3.8%. Right Femur Total: which represents a worsening of 1.1%. BD/Dexa Bone Density Study IMPRESSION: The patient is considered as outlined below according to World [place] Organization (WHO) criteria with a moderate fracture risk. There has been improvement of bone density since the previous examination. Reference Information: The T-score is the number of standard deviations above or below the standard which is normal for young adults at their peak bone mineral density. The World Health Organization (WHO) interprets the T-scores as follows: Above -1 Normal bone density Between -1 and -2.5 Osteopenia Equal to / or below -2.5 Osteoporosis As a practical clinical guideline, osteopenia may be graded as follows: Mild -1 through -1.5 Moderate -1.6 through -2.0 Severe -2.1 through -2.4 The Z-score is the number of standard deviations above or below age-matched controls. A Z-score of less than -1.5 would be considered abnormal. References: 1. NIH Osteoporosis and Related Bone Diseases www osteo.org 2. International Society for Clinical Densitometry www iscd.org 3. National Osteoporosis Foundation www nof.org Electronically Signed: Brain Ricketts MD at 9:08 EST ,
== END | disposition home or self-care (01) ==
PROVIDERS: PCP Internal Medicine; Referring Provider Internal Medicine; Visit Provider Internal Medicine
DX: Z78.0 Asymptomatic menopausal state (principal)
CPT/HCPCS: 77080

== ENCOUNTER → 2024-12-21 | Outpatient (CLI) | payer MEDICARE, OTHER, SELFPAY ==
--- NOTE | 2024-12-21 14:52 | STRESSREP ---
Stress Test Report Exercise myocardial perfusion stress test. 69-year-old lady with a history of atherosclerotic cardiovascular disease Stress protocol: Resting EKG demonstrates normal sinus rhythm with a rate of 68 bpm resting blood pressure is 128/84 mmHg. The patient exercised according to the regular Lane protocol for a total duration of 10 minutes and 30 seconds attaining a maximum heart rate of 136 bpm which was 91% of maximum predicted heart rate; the maximum workload was 13.6 metabolic equivalents. At rest there were no ST or T wave changes noted to suggest ischemia and at peak exercise upsloping ST changes only were noted which did not meet the criteria for ischemia. No clinical angina was noted the test was terminated due to the target heart rate being achieved/fatigue. The peak blood pressure was 140/70 mmHg. Rate-pressure product was 16,900. Myocardial perfusion protocol. 11.7 mCi of technetium 99m sestamibi was injected at rest. The patient exercised according to regular Lane protocol for total duration of 10 minutes and 30 seconds and at peak exercise 33.2 mCi of technetium 99m sestamibi was injected stress images were obtained stress and rest images were reconstructed in comparing the short axis vertical long and horizontal long axis. Gated images were also obtained. Perfusion SPECT analysis: Review of the stress images demonstrate normal uptake of tracer noted in all areas of the myocardium. The resting images similarly demonstrate normal uptake of tracer noted in all areas of the myocardium. No areas of reversibility are noted to suggest ischemia no previous infarct was noted. Gated SPECT analysis: The gated ejection fraction is 76%. Conclusion: Normal exercise myocardial perfusion stress test at a high workload Preserved ejection fraction.
== END | disposition home or self-care (01) ==
LOC: CVS 06:08
PROVIDERS: PCP Internal Medicine; Referring Provider Internal Medicine; Visit Provider Internal Medicine
DX: I25.10 Atherosclerotic heart disease of native coronary artery without angina pectoris (principal)
CPT/HCPCS: 78452; 93017; A9500; A4216

== ENCOUNTER → 2025-06-22 | Outpatient (CLI) | payer MEDICARE, OTHER, SELFPAY ==
--- NOTE | 2025-06-22 13:30 | BI_ITS ---
EXAM: SCRN MAMM (CAD)W/ROSELYN BILAT DATE: 06/22/2025 CLINICAL HISTORY: F, Age 70 y/o , SCRN MAMM (CAD)W/ROSELYN BILAT DUE AFTER 06/09/2025 Mother with breast cancer. Grandmother with breast cancer. TECHNIQUE: Procedure Code: [id number] Modality: MG Procedure: SCRN MAMM (CAD)W/ROSELYN BILAT COMPARISON: Prior exam(s) dated June 09, 2024.. FINDINGS: TISSUE DENSITY: The breasts are extremely dense, which lowers the sensitivity of mammography. Bilateral Breast Mammographic Findings: No significant masses, calcifications or other abnormalities are identified. No suspicious masses, areas of developing architectural distortion, or suspicious calcifications. There has been no significant interval change. BI/SCRN MAMM (CAD)W/ROSELYN BILAT IMPRESSION: Stable bilateral screening mammogram. OVERALL FINAL ASSESSMENT BI-RADS 1: NEGATIVE. RECOMMENDATION: Routine annual follow-up in 1 Year Additional Recommendation none A letter with findings and recommendations will be mailed to the patient. Reading Location: [id number]
== END | disposition home or self-care (01) ==
PROVIDERS: PCP Internal Medicine; Referring Provider Internal Medicine; Visit Provider Internal Medicine
DX: Z12.31 Encounter for screening mammogram for malignant neoplasm of breast (principal); Z80.3 Family history of malignant neoplasm of breast
CPT/HCPCS: 77063; 77067